=== PATIENT | male | born 1975 | race Caucasian/White ===

== ENCOUNTER 2018-12-19 13:56 | Emergency (ER) | payer OTHER ==
--- NOTE | 2018-12-19 14:42 | ED ---
Hypertension - HPI Summary HPI Summary: The patient is a 43 y/o M arriving by ambulance to [facility] with a chief complaint of hypertensive symptoms for the last two days. He reports that he has been experiencing lightheadedness with a pressure in the ears. He states these symptoms accompany his hypertensive episodes; he had a BP reading of 220/70 mmHg [employer]. He denies any CP, SOB, cough, or dysuria. He notes that he is compliant with his blood pressure medications (Clonidine, Lisinopril). The symptoms are still present in the ED, rated /10 in severity. He additionally notes that he is more anxious than usual because some of the people that he talked to at [facility] have left. PMHx: HTN, COPD. Former smoker, no EtOH, no substance use (sober for 4 months). Medications reviewed. Allergies noted. - History of Current Complaint Chief Complaint: EDHypertension Stated Complaint: HYPERTENSION PER EMS Time Seen by Provider: 12/19/18 14:22 Hx Obtained From: Patient Onset/Duration: Started Days Ago - two, Still Present Timing: Lasting Days Reported Blood Pressure Prior To Arrival: 220/70 mmHg Aggravating Factor(s): Nothing Alleviating Factor(s): Nothing Associated Signs & Symptoms: Dizziness, Other: - Positive: ear pressure. Negative: CP, SOB, cough, dysuria - Allergies/Home Medications Allergies/Adverse Reactions: Allergies Allergy/AdvReac Type Severity Reaction Status Date / Time No Known Allergies Allergy Verified 12/19/18 14:29 PMH/Surg Hx/FS Hx/Imm Hx Endocrine/Hematology History: Denies: Hx Diabetes Cardiovascular History: Reports: Hx Hypertension Respiratory History: Reports: Hx Chronic Obstructive Pulmonary Disease (COPD) - Surgical History Surgical History: None Surgery Procedure, Year, and Place: none Infectious Disease History: No Infectious Disease History: Denies: Traveled Outside the [place] in Last 30 Days - Family History Known Family History: Positive: Hypertension - Social History Lives: [facility] Alcohol Use: None 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 Negative: Chest Pain Negative: Shortness Of Breath, Cough Negative: dysuria Neurological: Other - dizziness Positive: Anxious All Other Systems Reviewed And Are Negative: Yes Physical Exam - Summary Physical Exam Summary: Constitutional: Well-developed, Well-nourished, Alert. (-) Distressed Skin: Warm, Dry HENT: Normocephalic; Atraumatic Eyes: Conjunctiva normal Neck: Musculoskeletal ROM normal neck. (-) JVD, (-) Stridor, (-) Tracheal deviation Cardio: Rhythm regular, rate normal, Heart sounds normal; Intact distal pulses; The pedal pulses are 2+ and symmetric. Radial pulses are 2+ and symmetric. (-) Murmur Pulmonary/Chest wall: Effort normal. (-) Respiratory distress, (-) Wheezes, (-) Rales Abd: Soft, (-) tenderness, (-) Distension, (-) Guarding, (-) Rebound Musculoskeletal: (-) Edema Lymph: (-) Cervical adenopathy Neuro: Alert, Oriented x3 Psych: Mood and affect Normal Triage Information Reviewed: Yes Vital Signs On Initial Exam: Initial Vitals Temp Pulse Resp BP Pulse Ox 99.2 F 96 16 167/100 100 12/19/18 14:23 12/19/18 14:23 12/19/18 14:23 12/19/18 14:23 12/19/18 14:23 Vital Signs Reviewed: Yes Diagnostics - Vital Signs Vital Signs Temp Pulse Resp BP Pulse Ox 12/19/18 14:23 99.2 F 96 16 167/100 100 - Laboratory Lab Statement: Any lab studies that have been ordered have been reviewed, and results considered in the medical decision making process. Re-Evaluation - Re-Evaluation First Eval Re-Evaluation Time: 14:30 Comment: Blood pressure has improved to 167/100 mmHg. We discussed discharge plan. Hypertension Course/Dx - Course Course Of Treatment: Patient is here with hypertension and pressure in his head. Patient's blood pressures which improved upon arrival here. Patient is feeling better as well. Patient has a normal neurologic and cardiovascular exam here. Patient was placed on clonidine earlier this year after taking lisinopril. Patient much lisinopril. Patient was given a dose of by mouth lisinopril and restarted on that here. Patient is encouraged to have his provider at [facility] medications. - Diagnoses Provider Diagnoses: Hypertension Discharge ED - Sign-Out/Discharge Documenting (check all that apply): Patient Departure - Patient will be dishcarged home . Patient Received Moderate/Deep Sedation with Procedure: No - Discharge Plan Condition: Stable Disposition: HOME Patient Education Materials: Hypertension (ED) Referrals: Khalida Reina NP [Nurse Practitioner] - 1 Day Additional Instructions: Start new medication. Have your Clonidine prescription changed by following up with Ladan Reina at [facility]. Return to the emergency department for any new weakness, changes in urination, numbness, or dizziness. - Billing Disposition and Condition Condition: STABLE Disposition: Home - Attestation Statements Document Initiated by Diana: Yes Documenting Scribe: Fatemeh Bone Provider For Whom Diana is Documenting (Include Credential): Dr. Moisés Flores MD Scribe Attestation: Fatemeh Ugalde scribed for Dr. Moisés Flores MD on 12/21/18 at 1100. Scribe Documentation Reviewed: Yes Provider Attestation: The documentation as recorded by the Fatemeh rubio accurately reflects the service I personally performed and the decisions made by me, Dr. Moisés Flores MD Status of Scribe Document: Viewed
[2018-12-19] MEDS: Lisinopril TAB* 10 MG PO ONE (14:56)
[2018-12-19 15:15] VITALS: BP 163/94
== END 2018-12-19 15:21 | disposition home or self-care (01) ==
LOC: ED 13:56
DX: I10 Essential (primary) hypertension (principal); J44.9 Chronic obstructive pulmonary disease, unspecified; Z87.891 Personal history of nicotine dependence
CPT/HCPCS: 99283; A9270-GY